=== PATIENT | male | born 1955 | race Caucasian/White ===

== ENCOUNTER → 2017-09-22 | Day surgery (SDC) | payer BC ==
[~2017-09-22] MED LIST: ADVIL PO; BELLADONNA/OPIUM 60 MG SUPP PR ONE; CEFTRIAXONE SOD 1 GM/NS 50 ML 50 ML IV ONE; DEXAMETHASONE SOD PHOS INJ 4 MG/ML VIAL ONE; DOXAZOSIN MESYLA2 MG PO; FENTANYL CITRATE/PF 100MCG/2 ML INJ ONE; FINASTERIDE5 MG PO; GENTAMICIN IV ONE; IOPAMIDOL 610MG/1ML 300 MG/ML VIAL IV ONE; LEVOTHYROXINE50 MCG PO; LIDOCAINE HCL 2% LOCAL INJ 5 ML SDV VIAL INJ ONE; MIDAZOLAM HCL 2 MG/2 ML VIAL ONE; ONDANSETRON HCL INJ 2 MG/ML VIAL ONE; POTASSIUM CITR10 MEQ PO; PROPOFOL IV EMULSION 10 MG/ML 20 ML VIAL ONE; SEVOFLURANE INHAL SOLN 250 ML PEN BTL ONE; [UNRECOGNIZED DRUG - OTHER] IV ONE
--- NOTE | 2017-11-02 01:01 | Operative Report ---
DATE OF PROCEDURE: September 22, 2017 PREOPERATIVE DIAGNOSES: 1. Obstructive benign prostatic hypertrophy, failed medical therapy. 2. History of urolithiasis. POSTOPERATIVE DIAGNOSES: 1. Obstructive benign prostatic hypertrophy, failed medical therapy. 2. History of urolithiasis. OPERATIONS PERFORMED: 1. Cystourethroscopy with bilateral ureteral catheterization and retrograde ureteropyelography (separate procedure performed to evaluate the upper tracts in light of the stone history). 2. Interpretation of retrograde ureteropyelography. 3. Cystourethroscopy with transurethral implantation of 4 UroLift prostatic urethral lift implants (separate procedure performed for the obstructive benign prostatic hypertrophy). ANESTHESIA: General. COMPLICATIONS: None. CLINICAL SUMMARY: Henry Powell is a 62-year-old man with an enlarged prostate approximately 40 g by digital rectal examination. The patient has had a decreased urinary force of stream and incomplete bladder emptying and has a 67 mL prostate obtained by transrectal ultrasonography at time of his previously negative prostate biopsies. The patient has tried Flomax, but he cannot take this Flomax due to the fact that he is an intolerant of the medication. The patient has thoroughly read the literature and researched information on the Internet and has elected to proceed with the UroLift prostatic urethral implant as management of his BPH. His AUA symptom score without medication is greater than 12. He understands the risks of bleeding, infection, injury to adjacent structures, potential need for additional procedures such as a transurethral resection or vaporization of the prostate. He understood all these risks and elected to proceed. OPERATIVE PROCEDURE IN DETAIL: Informed consent was verified. Henry Powell was properly identified, taken to the operating room and placed on the cystoscopy table in supine position. Anesthesia was uneventfully begun. The patient was then carefully and gently repositioned in the dorsal lithotomy position with all pressure points well padded. His genitalia were prepared and draped in usual sterile fashion. A 22.5-Filipino cystoscope sheath with the visual obturator in place was atraumatically inserted in patient's urethra. It was guided down the unremarkable urethra through his normal sphincteric region, through the prostate bed, which was significant for severely obstructing BPH with kissing lateral lobes and no median lobe. We entered the patient's bladder, which revealed trabeculations, but no tumors, no stones, and no diverticula. Normally positioned and configured ureteral orifices were identified. An 8-Filipino catheter was used to cannulate each ureter, and retrograde ureteral pyelograms were performed. Interpretation of retrograde ureteropyelography: Contrast was instilled in retrograde fashion bilaterally. There were no tumors, no stones, and no diverticula. Unobstructed drainage was observed bilaterally fluoroscopically. The cystoscope was removed. Then, the 20-Filipino cystoscope designed for the UroLift implant was atraumatically introduced with the visual obturator. We placed 4 UroLift implants, 1 on either side of the prostate 1/2 cm distal to the bladder neck and 1 on either side of the verumontanum anteriorly. This resulted in a continuous anterior channel and an ideal postoperative UroLift configuration. The was replaced. We carefully re-examined the bladder, we drained it, and then we carefully re-examined the prostate bed as we exited with the cystoscope. A belladonna and opium suppository was placed revealing a 40 g prostate, smooth and non-fluctuant without any nodules, and the patient was uneventfully reversed from anesthesia and taken to the recovery room in stable condition. There were no complications to the procedure. He tolerated the procedure well. Explicit postoperative instructions were given. Will follow the patient up in the office, at which point in time will plan on following him up with study such as uroflowmetry and bladder ultrasonography. Job#: [id number] cc:SUZETTE CHILDERS MD
== END | disposition home or self-care (01) ==
LOC: OR 07:44
PROVIDERS: ATTEND Urology
DX: N40.1 Benign prostatic hyperplasia with lower urinary tract symptoms (principal); N13.8 Other obstructive and reflux uropathy; R39.12 Poor urinary stream; R39.14 Feeling of incomplete bladder emptying; N32.89 Other specified disorders of bladder; R35.1 Nocturia; Z87.442 Personal history of urinary calculi; N50.0 Atrophy of testis; I10 Essential (primary) hypertension; E03.9 Hypothyroidism, unspecified; R00.1 Bradycardia, unspecified; T88.7XXA Unspecified adverse effect of drug or medicament, initial encounter; T44.6X5A Adverse effect of alpha-adrenoreceptor antagonists, initial encounter; Z01.810 Encounter for preprocedural cardiovascular examination
CPT/HCPCS: 52005; C9740; 76001; 93005; J0696; J1100; J1580; J2001; J2250; J2405

== ENCOUNTER → 2018-01-05 | Day surgery (SDC) | payer BC ==
[~2018-01-05] MED LIST changes: -BELLADONNA/OPIUM 60 MG SUPP PR ONE; -CEFTRIAXONE SOD 1 GM/NS 50 ML 50 ML IV ONE; -DEXAMETHASONE SOD PHOS INJ 4 MG/ML VIAL ONE; -GENTAMICIN IV ONE; +HYOSCYAMINE SULFATE 0.5 MG/ML AMP ONE; -IOPAMIDOL 610MG/1ML 300 MG/ML VIAL IV ONE; -ONDANSETRON HCL INJ 2 MG/ML VIAL ONE; -PROPOFOL IV EMULSION 10 MG/ML 20 ML VIAL ONE; +PROPOFOL IV EMULSION 10 MG/ML 50 ML VIAL ONE; -SEVOFLURANE INHAL SOLN 250 ML PEN BTL ONE; +SIMETHICONE 40 MG/0.6 ML BTL ONE; -[UNRECOGNIZED DRUG - OTHER] IV ONE
--- NOTE | 2018-01-05 10:00 | Operative Report ---
DATE OF PROCEDURE: January 05, 2018 REFERRING PHYSICIAN: Dr. Suzette Childers. PROCEDURE PERFORMED: Colonoscopy and polypectomy. INDICATIONS FOR COLONOSCOPY: Colorectal cancer screening. MEDICATION: Patient was done under MAC. Please see anesthesiologist's note. PROCEDURE: With the patient in the left lateral decubitus position, the flexible fiberoptic Olympus colonoscope was inserted into the rectum with ease and advanced all the way to the cecum. The scope was then withdrawn slowly. Mucosa overlying the cecum appeared to be within normal limits. One polyp was snared from the ascending colon. The transverse and descending appeared to be within normal limits. Some diverticular disease was noted in the sigmoid colon. The rectum appeared to be within normal limits. The scope was then retroflexed into the distal rectum, and small internal hemorrhoids were noted, none of which was actively bleeding. The scope was then straightened out, and it was subsequently withdrawn. Patient tolerated the procedure well. IMPRESSION 1. Ascending colon polyp, snared. 2. Diverticulosis. 3. Internal hemorrhoids, none actively bleeding. PLAN: Follow up histology. Initiate high-fiber, low-fat diet. Initiate high-fiber supplement. Patient will need a followup colonoscopy in 3 years. Job#: [id number] cc:SUZETTE CHILDERS MD
== END | disposition home or self-care (01) ==
LOC: ENDO 06:57
PROVIDERS: ATTEND Internal Medicine Gastroenterology
DX: Z12.11 Encounter for screening for malignant neoplasm of colon (principal); D12.0 Benign neoplasm of cecum; D12.2 Benign neoplasm of ascending colon; D12.3 Benign neoplasm of transverse colon; D12.5 Benign neoplasm of sigmoid colon; D12.4 Benign neoplasm of descending colon; K57.30 Diverticulosis of large intestine without perforation or abscess without bleeding; K64.8 Other hemorrhoids; N20.0 Calculus of kidney; F17.210 Nicotine dependence, cigarettes, uncomplicated; Z68.31 Body mass index [BMI] 31.0-31.9, adult; Z80.0 Family history of malignant neoplasm of digestive organs
CPT/HCPCS: 45385; J1980; J2001; J2250

== ENCOUNTER → 2018-09-28 | Outpatient (CLI) | payer BC ==
[~2018-09-28] MED LIST changes: -FENTANYL CITRATE/PF 100MCG/2 ML INJ ONE; -HYOSCYAMINE SULFATE 0.5 MG/ML AMP ONE; -LIDOCAINE HCL 2% LOCAL INJ 5 ML SDV VIAL INJ ONE; -MIDAZOLAM HCL 2 MG/2 ML VIAL ONE; -PROPOFOL IV EMULSION 10 MG/ML 50 ML VIAL ONE; -SIMETHICONE 40 MG/0.6 ML BTL ONE
--- NOTE | 2018-09-28 09:54 | Diagnostic Imaging Report ---
PROCEDURE:X-RAY ABDOMEN - KUB COMPARISON:Retrograde pyelogram 09/22/2017, KUB 04/01/2017. Report from CT abdomen and pelvis without contrast from May 04 INDICATIONS:KIDNEY STONES FINDINGS: There is a cluster of calcifications measuring 1.6 x 1.6 cm in aggregate dimension projecting over the expected region of the left renal pelvis, shown to represent a mesenteric calcification on comparison CT. 6 mm calcification projecting over the upper pole of the left renal shadow is unchanged. Multiple pelvic phleboliths. Probable brachytherapy apparatus within the prostate. Bowel gas pattern is nonobstructive. Regional skeletal structures are intact. CONCLUSION: Unchanged 6 mm left upper pole renal calculus. Dictated by: Ryan Gruber M.D. on 09/28/2018 at 10:03 Electronically approved by: Ryan Gruber M.D. on 09/28/2018 at 10:03
== END ==
LOC: RAD 09:18
PROVIDERS: ATTEND Urology
DX: N20.0 Calculus of kidney (principal)
CPT/HCPCS: 74018

== ENCOUNTER → 2018-12-13 | Outpatient (CLI) | payer BC ==
--- NOTE | 2018-12-13 12:59 | Diagnostic Imaging Report ---
EXAMINATION: MRI of the brain without contrast. HISTORY: Unusual right-sided headaches since last October COMPARISON: None. TECHNIQUE: Sagittal T2; axial DWI, T2, FLAIR, T1-IR, T2 gradient echo; coronal FLAIR. IMAGE QUALITY: Adequate. FINDINGS: Parenchyma: 1. Few scattered and mildly confluent periventricular white matter T2 and FLAIR hyperintense foci, most likely nonspecific chronic microvascular ischemic changes. 2. No mass, hemorrhage, acute or chronic infarcts. Skull: Unremarkable. Vessels: Expected flow voids present in the major arteries and dural sinuses. Extra-axial spaces: No abnormal signal intensity or mass effect. Brain volume: Within normal limits for age. Ventricles: No hydrocephalus or displacement. Foramen magnum: Unremarkable. Sella: Unremarkable. Paranasal / mastoid sinuses: Mild mucosal inflammatory thickening of the bilateral frontal, ethmoidal and maxillary sinuses. IMPRESSION: 1. Mild chronic microvascular ischemic changes, otherwise no intracranial abnormalities. 2. Minimal mucosal inflammatory thickening of the paranasal sinuses. Signed by: Dr. Sydney Kim M.D. on 12/13/2018 12:56 PM
== END ==
LOC: MRI 09:15
PROVIDERS: ATTEND Specialist
DX: R51 Headache (principal)
CPT/HCPCS: 70551

== ENCOUNTER → 2019-02-21 | Outpatient (CLI) | payer BC ==
--- NOTE | 2019-02-21 12:08 | Diagnostic Imaging Report ---
Exam: KUB-2 views Clinical History: History of renal stones. Comparison: None. Findings: Bowel gas partially obscures visualization of the kidneys. There is a 3 mm calcification overlying the left mid kidney. No evidence of calcification overlying the right kidney or expected course of the ureters. Calcified phleboliths are present in the pelvis. Nonobstructive bowel gas pattern. Moderate amount of stool in the colon. Postsurgical changes involving the prostate. On one of the views, there is a sclerotic appearance of the left L1 transverse process. On the additional view, the sclerotic appearance is not present, however the transverse process margin is not well delineated. Impression: Likely 3 mm left mid pole renal stone. On one of the views, there is an indeterminant sclerotic appearance of the left L1 transverse process. On the additional view, the sclerotic appearance is not present, however the transverse process margin is not well delineated. Comparison with prior studies or dedicated lumbar spine radiographs are suggested for further evaluation. Signed by: Dr. Shelby Berg MD on 02/21/2019 12:05 PM
== END ==
LOC: RAD 11:02
PROVIDERS: ATTEND Urology
DX: N20.0 Calculus of kidney (principal)
CPT/HCPCS: 74018

== ENCOUNTER 2019-06-19 12:23 | Inpatient (IN) | payer BC ==
[~2019-06-19] VITALS: Ht 175.3 cm; Wt 90.7 kg
--- OUTSIDE RECORDS SUMMARY | 2019-06-19 12:27 | XMS REPORT ---
Author [facility] Address Unknown Phone Unavailable Care Team Providers Care Community Service Officer Name Role Phone MARGO STEPHENS Unavailable Unavailable SUZETTE CHILDERS Unavailable Unavailable Payers Payer Name Policy Type Policy Number Effective Date Expiration Date Problems This patient has no known problems. Allergies, Adverse Reactions, Alerts Allergy Name Allergy Type Status Severity Reaction(s) Onset Date Inactive Date Treating Clinician Comments No Known Allergies DA Active U 2018-10-28 00:00:00 Sulfa (Sulfonamide Antibiotics) DA Active SV 2018-10-28 00:00:00 Medications This patient has no known medications. Results Test Description Test Time Test Comments Text Results Atomic Results Result Comments [address] (KUB) 2019-02-21 11:57:00 [place] [address] Patient Name: ANDRZEJ JOHNSON MR #: [id number] : 1955 Age/Sex: 63/M Req #: [id number] Adm Physician: Ordered by: MARGO STEPHENS MD Report #: [id number] Location: [facility] Room/Bed: Procedure: [id number] DX/ABDOMEN-1VIEW (KUB) Exam Date: 02/21/19 Exam Time: 1100 REPORT STATUS: Signed Exam: KUB-2 views Clinical History: History of renal stones. Comparison: None. Findings: Bowel gas partially obscures visualization of the kidneys. There is a 3 mm calcification overlying the left mid kidney. No evidence of calcification overlying the right kidney or expected course of the ureters. Calcified phleboliths are present in the pelvis. Nonobstructive bowel gas pattern. Moderate amount of stool in the colon. Postsurgical changes involving the prostate. On one of the views, there is a sclerotic appearance of the left L1 transverse process. On the additional view, the sclerotic appearance is not present, however the transverse process margin is not well delineated. Impression: Likely 3 mm left mid pole renal stone. On one of the views, there is an indeterminant sclerotic appearance of the left L1 transverse process. On the additional view, the sclerotic appearance is not present, however the transverse process margin is not well delineated. Comparison with prior studies or dedicated lumbar spine radiographs are suggested for further evaluation. Signed by: Dr. Sandro Krueger MD on 02/21/2019 12:05 PM Dictated By: SANDRO KRUEGER MD 1205 Transcribed By: SUZAN on 02/21/19 1205 COPY TO: MARGO STEPHENS MD MRI BRAIN WO 2018-12-13 11:49:00 [place] [address] Patient Name: ANDRZEJ JOHNSON MR #: [id number] : 1955 Age/Sex: 63/M Req #: [id number] Adm Physician: Ordered by: SUZETTE CHILDERS MD Report #: [id number] Location: MRI Room/Bed: Procedure: [id number] MRI/MRI BRAIN WO Exam Date: 12/13/18 Exam Time: 1108 REPORT STATUS: Signed EXAMINATION: MRI of the brain without contrast. HISTORY: Unusual right-sided headaches since last October COMPARISON: None. TECHNIQUE: Sagittal T2; axial DWI, T2, FLAIR, T1-IR, T2 gradient echo; coronal FLAIR. IMAGE QUALITY: Adequate. FINDINGS: Parenchyma: 1. Few scattered and mildly confluent periventricular white matter T2 and FLAIR hyperintense foci, most likely nonspecific chronic microvascular ischemic changes. 2. No mass, hemorrhage, acute or chronic infarcts. Skull: Unremarkable. Vessels: Expected flow voids present in the major arteries and dural sinuses. Extra-axial spaces: No abnormal signal intensity or mass effect. Brain volume: Within normal limits for age. Ventricles: No hydrocephalus or displacement. Foramen magnum: Unremarkable. Sella: Unremarkable. Paranasal / mastoid sinuses: Mild mucosal inflammatory thickening of the bilateral frontal, ethmoidal and maxillary sinuses. IMPRESSION: 1. Mild chronic microvascular ischemic changes, otherwise no intracranial abnormalities. 2. Minimal mucosal inflammatory thickening of the paranasal sinuses. Signed by: Dr. Wilmar Kim M.D. on 12/13/2018 12:56 PM Dictated By: WILMAR KIM MD 1256 Transcribed By: SUZAN on 12/13/18 1256 COPY TO: SUZETTE CHILDERS MD [address] ([facility]) 2018-09-28 10:03:00 [place] [address] Patient Name: ANDRZEJ JOHNSON MR #: [id number] : 1955 Age/Sex: 63/M Req #: [id number] Adm Physician: Ordered by: MARGO STEPHENS MD Report #: [id number] Location: [facility] Room/Bed: Procedure: [id number] DX/ABDOMEN-1VIEW (KUB) Exam Date: 09/28/18 Exam Time: 0930 REPORT STATUS: Signed PROCEDURE: X-RAY ABDOMEN - KUB COMPARISON: Retrograde pyelogram 09/22/2017, KUB 04/01/2017. Report from CT abdomen and pelvis without contrast from May 04 INDICATIONS: KIDNEY STONES FINDINGS: There is a cluster of calcifications measuring 1.6 x 1.6 cm in aggregate dimension projecting over the expected region of the left renal pelvis, shown to represent a mesenteric calcification on comparison CT. 6 mm calcification projecting over the upper pole of the left renal shadow is unchanged. Multiple pelvic phleboliths. Probable brachytherapy apparatus within the prostate. Bowel gas pattern is nonobstructive. Regional skeletal structures are intact. CONCLUSION: Unchanged 6 mm left upper pole renal calculus. Dictated by: Geraldo Kaur M.D. on 09/28/2018 at 10:03 Electronically approved by: Geraldo Kaur M.D. on 09/28/2018 at 10:03 Dictated By: GERALDO KAUR MD 1003 Transcribed By: COLLEEN on 09/28/18 1003 COPY TO: MARGO STEPHENS MD
[2019-06-19] MEDS ORDERED: ONDANSETRON HCL INJ 2MG/ML 2ML 2 MG/ML VIAL IV STA (13:07)
[2019-06-19] MEDS ORDERED: SODIUM CHLORIDE 0.9% 1000ML 1,000 ML IV STA (13:07)
[2019-06-19] MEDS ORDERED: MORPHINE SULFATE 2 MG/ML SYR 1ML IV STA (13:07)
[2019-06-19] MEDS ORDERED: KETOROLAC TROMETHAMINE 30 MG/ML VIAL IV STA (13:07)
[2019-06-19 13:35] LABS: BASOPHILS % 0.3 % (0.0-1.0); EOSINOPHILS # (AUTO) 0.1 (0.0-0.4); EOSINOPHILS % 0.4 % (0.0-6.0); HEMATOCRIT 40.4 % (38.2-49.6); HEMOGLOBIN 13.8 g/dL (14.0-18.0); LYMPHOCYTES # (AUTO) 1.9 (1.0-3.2); LYMPHOCYTES % 15.4 % (18.0-39.1); MEAN CORPUSCULAR HEMOGLOBIN 30.1 pg (28-32); MEAN CORPUSCULAR HGB CONC 34.2 g/dL (31-35); MONOCYTES # (AUTO) 1.2 (0.2-0.8); MONOCYTES % 9.9 % (4.4-11.3); NEUTROPHILS # (AUTO) 9.2 (2.1-6.9); NEUTROPHILS % 73.6 % (38.7-80.0); PLATELET COUNT 258 x10e3/uL (140-360); RED BLOOD COUNT 4.59 x10e6/uL (4.3-5.7); RED CELL DISTRIBUTION WIDTH 12.3 % (11.7-14.4)
[2019-06-19 13:48] LABS: INR 0.96; PARTIAL THROMBOPLASTIN TIME 29.3 seconds (23.8-35.5); PROTHROMBIN TIME 13.3 seconds (11.9-14.5)
[2019-06-19 13:59] LABS: ALBUMIN 3.9 g/dL (3.5-5.0); ALBUMIN/GLOBULIN RATIO 1.4 (0.8-2.0); ANION GAP 16.6 mmol/L (8-16); CALCIUM 9.2 mg/dL (8.4-10.2); CREATININE, SERUM 1.43 mg/dL (0.72-1.25); POTASSIUM 3.6 mmol/L (3.5-5.1)
--- NOTE | 2019-06-19 14:06 | NUR ---
PATIENT TO ROOM 9
--- NOTE | 2019-06-19 14:26 | Diagnostic Imaging Report ---
EXAM: CT Abdomen and Pelvis WITHOUT intravenous contrast INDICATION: Left Flank pain COMPARISON: CT abdomen pelvis of 04/17/2016 TECHNIQUE: Abdomen and pelvis were scanned utilizing a multidetector helical scanner from the lung base to the pubic symphysis without administration of IV contrast. Coronal and sagittal reformations were obtained. IV CONTRAST: None ORAL CONTRAST: None COMPLICATIONS: None RADIATION DOSE: Total DLP: 582.2 mGy*cm Dose modulation, iterative reconstruction, and/or weight based adjustment of the mA/kV was utilized to reduce the radiation dose to as low as reasonably achievable. FINDINGS: LOWER THORAX: No focal consolidation. Right middle lobe calcified granuloma. The heart is not enlarged. No pericardial effusion. HEPATOBILIARY: No focal liver lesion. The gallbladder appears unremarkable. SPLEEN: No splenomegaly. PANCREAS: No focal masses or ductal dilatation. ADRENALS: No adrenal nodules. KIDNEYS/URETERS: There is a 5 mm proximal right ureteral calculus resulting in mild right hydroureteronephrosis. Possible additional 6 mm right distal ureteral calculus immediately proximal to the ureterovesical junction. There is increased right perinephric stranding, which can be seen in pyelonephritis. No left hydronephrosis. Nonobstructive 6 mm left upper pole renal calculus. PELVIC ORGANS/BLADDER: Prostatomegaly to 5.2 cm with coarse internal calcifications. The bladder appears unremarkable. PERITONEUM / RETROPERITONEUM: No free air or fluid. LYMPH NODES: 13 mm midabdominal calcified mesenteric lymph node. VESSELS: Unremarkable. GI TRACT: Colonic diverticulosis. No CT evidence of diverticulitis. No bowel obstruction. No abnormal bowel wall thickening. BONES AND SOFT TISSUES: No acute osseous injury. No suspicious lytic or blastic lesions. IMPRESSION: 5 mm proximal right ureteral calculus and likely additional 6 mm right distal ureteral calculus resulting in mild right hydroureteronephrosis. Increased right perinephric stranding can be seen with pyelonephritis. Prostatomegaly with coarse internal calcifications. Signed by: Beatriz Deluna MD on 06/19/2019 2:23 PM
[2019-06-19] MEDS ORDERED: ONDANSETRON HCL INJ 2MG/ML 2ML 2 MG/ML VIAL ONE (15:05)
[2019-06-19] MEDS ORDERED: DEXAMETHASONE SOD PHOS INJ 4 MG/ML VIAL ONE (15:05)
[2019-06-19] MEDS ORDERED: LIDOCAINE HCL 2% LOCAL INJ 5 ML SDV VIAL INJ ONE (15:05)
[2019-06-19] MEDS ORDERED: SEVOFLURANE INHAL SOLN 250 ML PEN BTL ONE (15:05)
[2019-06-19] MEDS ORDERED: PROPOFOL IV EMULSION 10 MG/ML 20 ML VIAL ONE (15:05)
[2019-06-19] MEDS ORDERED: MIDAZOLAM HCL 2 MG/2 ML VIAL ONE (15:12)
[2019-06-19] MEDS: CEFTRIAXONE SOD 1 GM/NS 50 ML 50 ML IV SCH (15:15)
[2019-06-19] MEDS ORDERED: MORPHINE SULFATE 2 MG/ML SYR 1ML IV PRN (15:30)
[2019-06-19] MEDS ORDERED: MORPHINE SULFATE INJ 4 MG/ML INJ 1ML IV PRN (15:30)
[2019-06-19] MEDS ORDERED: ONDANSETRON HCL INJ 2MG/ML 2ML 2 MG/ML VIAL IV PRN (15:30)
--- NOTE | 2019-06-19 16:04 | NUR ---
PATIENT TRANSPORTED TO O.R.
[2019-06-19] MEDS ORDERED: IOPAMIDOL 610MG/1ML 300 MG/ML VIAL IV ONE (16:13)
[2019-06-19] MEDS ORDERED: B&O 60MG R/S 60 MG SUPP PR ONE (16:13)
[2019-06-19] MEDS ORDERED: ACETAMINOPHEN/CODEINE 300MG - 30MG TAB PO PRN (17:15)
[2019-06-19] MEDS ORDERED: B&O 60MG R/S 60 MG SUPP PR PRN (17:15)
--- NOTE | 2019-06-19 19:38 | NUR ---
Received the pt from [facility] to room #110 s/p cystoscopy retrograde and right stent placement done. aaox4.asessment done.no rep.distress.pain voiced 01/22.tele #17 placed noted sb 43.snacks provided.need to strain urine.bed locked and in lowest position.phone and call light within reach.instructed to call for asistance as needed.keep monitor the pt.
[2019-06-19 20:10] VITALS: BP 102/49
[2019-06-19 20:29] VITALS: BP 112/66
[2019-06-19] MEDS: PHENAZOPYRIDINE HCL 100 MG TAB PO SCH (21:04)
[2019-06-19] MEDS: OXYBUTYNIN CHLORIDE 5 MG TAB PO SCH (21:04)
[2019-06-19 23:09] VITALS: BP 112/66
[2019-06-20 00:17] VITALS: BP 84/46
[2019-06-20] MEDS: SODIUM CHLORIDE 0.9% 1000ML 1,000 ML IV SCH ×2 (01:15→01:24)
--- NOTE | 2019-06-20 01:52 | Operative Report ---
DATE OF PROCEDURE: 06/19/2019 SURGEON: Mata Serna MD PREOPERATIVE DIAGNOSES: 1. Right hydronephrosis due to stone. 2. Acute renal failure. POSTOPERATIVE DIAGNOSES: 1. Right hydronephrosis due to stone. 2. Acute renal failure. OPERATION PERFORMED: 1. Cystourethroscopy with bilateral ureteral catheterization and retrograde ureteropyelography (separate procedure performed to evaluate the patient's urinary tract in light of the acute renal failure). 2. Interpretation of retrograde ureteropyelography. 3. Supervision of fluoroscopy, no radiologist present. 4. Cystourethroscopy with insertion of right indwelling ureteral stent (separate procedure performed to relieve the hydronephrosis). ANESTHESIA: General. COMPLICATIONS: None. CLINICAL SUMMARY: Please refer to consultation dictation from the same date. OPERATIVE PROCEDURE IN DETAIL: Informed consent was verified. Henry Powell was properly identified, taken to the operating room, placed on the cystoscopy table in supine position. Anesthesia was uneventfully begun. The patient was then carefully gently repositioned in the dorsal lithotomy position with all pressure points well padded. His genitalia were prepared and draped in the usual sterile fashion. A 22.5-Zambian cystoscope sheath with visual obturator in place was atraumatically inserted into the patient's urethra. It was guided down the unremarkable urethra to the normal sphincteric region into the prostate bed, which was significant for visually obstructing bilobar BPH, most prominent at the apical region. There was a small continuous anterior channel as a result of the UroLift implant. We entered the patient's bladder, panendoscopy revealed grade 2 trabeculations, but no tumors, no stones, no diverticula. Normally positioned configured ureteral orifices were identified. A 5-Zambian open-ended catheter was used to cannulate the left ureter and retrograde ureteropyelograms was performed, it was then inserted into the right ureter and retrograde ureteropyelograms were performed. We then negotiated guidewire into the right renal pelvis. We followed this with the open-ended catheter. A clear hydronephrotic drip was obtained. The wire was replaced with cystoscopic and fluoroscopic guidance. A right-sided indwelling ureteral stent was then placed, it was coiled the patient's renal pelvis as well as the patient's bladder. The retaining suture was cut short. The patient's bladder was drained. The cystoscope was withdrawn. A tobias and opium suppository were placed revealing a 45 g prostate, smooth and non-fluctuant without any nodules. The patient was then uneventfully reversed from anesthesia and taken to recovery room in stable condition. Explicit postop instructions were left on the chart. We will plan on rechecking the patient's laboratory studies tomorrow and probably discharge him tomorrow. Mata MD Kareem [place]/MODL /[id number] cc: Deshaun Alexander MD
--- NOTE | 2019-06-20 02:24 | NUR ---
Patient is sleeping well.strain urine.stable condition.no pain voiced.
--- NOTE | 2019-06-20 02:32 | Consultation ---
DATE OF CONSULTATION: 06/19/2019 Urology Consultation REASON FOR CONSULTATION: Obstructive uropathy. HISTORY OF PRESENT ILLNESS: Henry Powell is a 64-year-old man with history of urolithiasis. He also has a history of BPH and is status post UroLift implantation. The patient had presented with a 3 to 4-day history of severe right-sided flank pain. He had microhematuria as well as gross hematuria in the office. Due to his symptomatology, I referred him immediately to the emergency room, where he was evaluated and found to have obstructive uropathy and subsequently admitted. For past medical history, past surgical history, social history, family history, please refer to my office chart and prior charts here. MEDICATIONS: Please refer to the MAR. ALLERGIES: PLEASE REFER TO THE MAR. REVIEW OF SYSTEMS: Discussed as above in the history of present illness and past medical history, otherwise negative for all systems. PHYSICAL EXAMINATION: GENERAL: Healthy-appearing 64-year-old male, lying in bed, in no apparent distress, but obvious discomfort. ABDOMEN: Soft and nondistended. It is tender in the right flank with right costovertebral angle tenderness. Kidneys not palpable without hepatosplenomegaly. No obvious evidence of hernia. For the remaining physical examination systems, please refer to the ERT sheet and the history and physical by the admitting physician. LABORATORY STUDIES: White blood cell count is 12,450, hemoglobin 13.8, and platelets are normal. The patient's creatinine is elevated at 1.43. PT and PTT are unremarkable. CT scan of the abdomen and pelvis showed a 5 mm proximal right ureteral stone resulting in right hydroureteronephrosis. There is a 6 mm stone, that is calcification near the distal right ureter, which the radiologist thinks may be a stone, but is not, it appears to be a phlebolith to me. There is a 6 mm left upper pole stone as well. ASSESSMENT: 1. Leukocytosis. 2. Anemia. 3. Nausea and vomiting. 4. Malaise. PLAN: I posted the patient emergently for cystoscopy with retrograde pyelograms and insertion of stent in order to relieve his obstructive uropathy. Following this, we will plan to electively manage the patient's stone. Mata MD [place]/MODL /[id number] cc: Deshaun Alexander MD
[2019-06-20] MEDS: CEFTRIAXONE SOD 1 GM/NS 50 ML 50 ML IV SCH (02:58)
[2019-06-20 04:31] VITALS: BP 104/54
[2019-06-20 06:10] LABS: BASOPHILS % 0.2 % (0.0-1.0); EOSINOPHILS % 0.1 % (0.0-6.0); HEMATOCRIT 38.2 % (38.2-49.6); HEMOGLOBIN 12.7 g/dL (14.0-18.0); LYMPHOCYTES # (AUTO) 1.7 (1.0-3.2); LYMPHOCYTES % 20.6 % (18.0-39.1); MEAN CORPUSCULAR HGB CONC 33.2 g/dL (31-35); MEAN CORPUSCULAR VOLUME 90.1 fL (81-99); MONOCYTES # (AUTO) 0.9 (0.2-0.8); MONOCYTES % 10.3 % (4.4-11.3); NEUTROPHILS # (AUTO) 5.6 (2.1-6.9); NEUTROPHILS % 68.4 % (38.7-80.0); PLATELET COUNT 217 x10e3/uL (140-360); RED BLOOD COUNT 4.24 x10e6/uL (4.3-5.7); RED CELL DISTRIBUTION WIDTH 12.5 % (11.7-14.4)
[2019-06-20 06:55] LABS: ALANINE AMINOTRANSFERASE 15 IU/L (0-55); ALBUMIN 3.2 g/dL (3.5-5.0); ALBUMIN/GLOBULIN RATIO 1.3 (0.8-2.0); ALKALINE PHOSPHATASE 67 IU/L (40-150); BLOOD UREA NITROGEN 20 mg/dL (7-26); BUN/CREATININE RATIO 20 (6-25); CALCIUM 8.4 mg/dL (8.4-10.2); CARBON DIOXIDE 23 mmol/L (22-29); CHLORIDE 106 mmol/L (98-107); CREATININE, SERUM 1.01 mg/dL (0.72-1.25); EST GLOMERULAR FILTRATION RATE > 60 ML/MIN (60-); GLUCOSE 108 mg/dL (74-118); SODIUM 138 mmol/L (136-145)
--- NOTE | 2019-06-20 07:07 | NUR ---
Bed side shift report given to the oncoming Rn.stable condition.
--- NOTE | 2019-06-20 07:24 | NUR ---
Rcvd patient in report this am. Patient is asleep in bed at this time. No s/s of distress noted
[2019-06-20 08:07] VITALS: BP 103/59
[2019-06-20] MEDS: PHENAZOPYRIDINE HCL 100 MG TAB PO SCH (08:31)
[2019-06-20] MEDS: OXYBUTYNIN CHLORIDE 5 MG TAB PO SCH (08:31)
[2019-06-20 09:11] VITALS: BP 103/59
--- NOTE | 2019-06-20 09:20 | NUR ---
Patient is AAOx3. Patient lung morrison clear to auscultation. Bowel sounds present x4. No edema noted. Patient ambulates on his own. No c/o pain. Left AC IV in place. IV fluids infusing.
[2019-06-20] MEDS ORDERED: CIPRO500 MG PO (09:28)
[2019-06-20] MEDS ORDERED: ULTRAM 50MG50 MG PO (09:29)
[2019-06-20] MEDS ORDERED: DITROPAN XL5 MG PO (09:29)
[2019-06-20] MEDS ORDERED: TYLENOL WITH C1 EACH PO (09:29)
[2019-06-20] MEDS ORDERED: ONDANSETRON HCL 4 MG ORAL DISINTEGRATING TAB PO PRN (09:45)
--- NOTE | 2019-06-20 09:52 | NUR ---
Patient discharged from facility to home. Patient assisted out via staff. Reviewed all discharge paperwork, follow up appts and RX's given. No s/s of distress noted
--- NOTE | 2019-06-21 07:54 | Discharge Summary ---
PRIMARY CARE PHYSICIAN: Deshaun Alexander MD FINANCIAL COUNSELOR: Mata Serna MD FINAL DIAGNOSES: 1. Multiple ureteral stone on the right, one is 5 mm, the other one is 6 mm. The patient is status post cystourethroscopy with bilateral ureteral catheterization and retrograde ureteropyelography with right indwelling ureteral stent placement. 2. Right renal colic associated with right flank pain, improving. 3. Right hydronephrosis due to stone. 4. Acute renal insufficiency. SUMMARY: The patient is a 64-year-old male, came in with right renal colic. The patient is otherwise stable. He underwent ureteral stent placement. WBC is 8.2 compared to 12.4 on admission. Renal function 1.01 compared to 1.43. The patient is otherwise stable. He is now with a stent. The patient will go home today, follow up with Dr. Mata Serna. Discharged home with Tylenol No. 3, tramadol, and Ditropan. The patient is otherwise stable. Follow up with Dr. Deshaun Alexander for any pain control and follow up with Dr. Mata Serna for stent management. MD SAEED Mckinnon/FRANKYL /[id number]
[2019-07-14] MEDS ORDERED: AZO PO (10:22)
== END 2019-06-20 09:52 | disposition home or self-care (01) | DRG 660 ==
LOC: ER 12:23 → ERHOLD 15:31 → MED/SURG 19:39
PROVIDERS: ADMIT Internal Medicine; ATTEND Internal Medicine
PROC: BT141ZZ Fluoroscopy of Kidneys, Ureters and Bladder using Low Osmolar Contrast (ICD-10-PCS; 2019-06-19)
PROC: 0T768DZ Dilation of Right Ureter with Intraluminal Device, Via Natural or Artificial Opening Endoscopic (ICD-10-PCS; principal; 2019-06-19 15:00)
DX: N13.2 Hydronephrosis with renal and ureteral calculous obstruction (principal); N13.8 Other obstructive and reflux uropathy; N17.9 Acute kidney failure, unspecified; E03.9 Hypothyroidism, unspecified; I10 Essential (primary) hypertension; R31.0 Gross hematuria; R31.29 Other microscopic hematuria; R53.81 Other malaise; R11.2 Nausea with vomiting, unspecified; D64.9 Anemia, unspecified; D72.829 Elevated white blood cell count, unspecified; N40.1 Benign prostatic hyperplasia with lower urinary tract symptoms
CPT/HCPCS: 36415; 74176; 74420; 80053; 83970; 84550; 85025; 85610; 85730; 99284; C1758; C2617; J0696; J1100; J1885; J2001; J2250; J2405; J7030

== ENCOUNTER → 2019-07-14 | Day surgery (SDC) | payer BC ==
[2019-07-12 15:44] LABS: ANION GAP 13.7 mmol/L (8-16); BLOOD UREA NITROGEN 14 mg/dL (7-26); BUN/CREATININE RATIO 16 (6-25); CALCIUM 9.1 mg/dL (8.4-10.2); CARBON DIOXIDE 26 mmol/L (22-29); CHLORIDE 103 mmol/L (98-107); CREATININE, SERUM 0.88 mg/dL (0.72-1.25); EST GLOMERULAR FILTRATION RATE > 60 ML/MIN (60-); GLUCOSE 86 mg/dL (74-118); POTASSIUM 3.7 mmol/L (3.5-5.1); SODIUM 139 mmol/L (136-145)
[~2019-07-14] MED LIST changes: +AZO PO; +B&O 60MG R/S 60 MG SUPP PR ONE; +CEFTRIAXONE SOD 1 GM/NS 50 ML 50 ML IV ONE; +CIPRO500 MG PO; +DEXAMETHASONE SOD PHOS INJ 4 MG/ML VIAL ONE; +DITROPAN XL5 MG PO; +FENTANYL CITRATE/PF 100MCG/2 ML INJ ONE; +IOPAMIDOL 610MG/1ML 300 MG/ML VIAL IV ONE; +LIDOCAINE HCL 2% LOCAL INJ 5 ML SDV VIAL INJ ONE; +MIDAZOLAM HCL 2 MG/2 ML VIAL ONE; +ONDANSETRON HCL INJ 2MG/ML 2ML 2 MG/ML VIAL ONE; +PROPOFOL IV EMULSION 10 MG/ML 20 ML VIAL ONE; +SEVOFLURANE INHAL SOLN 250 ML PEN BTL ONE; +TYLENOL WITH C1 EACH PO; +ULTRAM 50MG50 MG PO
--- NOTE | 2019-07-14 11:14 | Diagnostic Imaging Report ---
Abdomen, 1 view. History: Preop, renal calculus. Comparison: CT abdomen 06/19/2019. Findings: Right internal ureteral stent is present. A 5 mm calcification is seen adjacent to the stent at the level of L3-L4. A 6 mm stone is projected over the upper pole of the left kidney. Multiple calcified phleboliths are present within the pelvis bilaterally. Prostatic seeds are noted. Air is scattered throughout nondilated small and large bowel. There are no masses. The osseous structures are intact. IMPRESSION: Right internal ureteral stent with adjacent proximal right ureteral stone. Signed by: Mark Sheehan on 07/14/2019 11:10 AM
[2019-07-14 13:10] VITALS: BP 123/76
--- NOTE | 2019-08-22 05:00 | Operative Report ---
DATE OF PROCEDURE: 07/14/2019 SURGEON: Mata Serna MD PREOPERATIVE DIAGNOSES: 1. Right ureterolithiasis. 2. Right nephrolithiasis. 3. Foreign body (right indwelling ureteral stent). 4. Left nephrolithiasis. POSTOPERATIVE DIAGNOSES: 1. Right ureterolithiasis. 2. Right nephrolithiasis. 3. Foreign body (right indwelling ureteral stent). 4. Left nephrolithiasis. OPERATION PERFORMED: Note these were all staged procedures as part of multi-staged and multi-step process in managing the patient's urolithiasis. 1. Cystourethroscopy with complicated removal of indwelling ureteral stent (separate procedure performed with separate scope for the diagnosis of stent). 2. Left ureteroscopy (separate procedure performed to evaluate the stone noted on CT on the left hand side). 3. Right semi-rigid ureteroscopy with stone manipulation and extraction of three right ureteral stones (separate procedure performed done with a separate scope). 4. Right flexible ureteropyeloscopy with stone manipulation (separate procedure performed for one small right renal stone). 5. Radiological services for supervision and interpretation of ureteroscopy. 6. Interpretation of retrograde ureteropyelography. 7. Supervision of fluoroscopy, no radiologist present. ANESTHESIA: General. COMPLICATIONS: None. CLINICAL SUMMARY: Henry Powell is a 64-year-old man, who had a previous UroLift implant. He has had a stent in place. He is brought for the above procedure. He is aware of the risks of bleeding, infection, injury to adjacent structures, need for additional procedures and elected to proceed. OPERATIVE PROCEDURE IN DETAIL: Informed consent was verified. Henry Powell was properly identified, taken to the operating room, and placed on the cystoscopy table in the supine position. Anesthesia was uneventfully begun. The patient was then carefully gently repositioned in the dorsal lithotomy position with all pressure points well padded. His genitalia were prepared and draped in the usual sterile fashion. The cystoscope sheath with the visual obturator in place was atraumatically inserted into the patient's urethra, was guided down the unremarkable distal urethra through the normal sphincteric region into the prostate bed, which was significant for having an open anterior channel, however, the remaining of the prostate appeared fairly obstructive from the kissing lateral lobes in the region of the verumontanum to the kissing lateral lobes more proximally. We went to the patient's bladder and drained it. Panendoscopy revealed trabeculations but no tumors, no stones, no suspicious lesions. The stent was noted to be emerging from the right ureter. We cannulated the left collecting system. Flexible ureteroscope was then brought up over the guidewire. Panendoscopy with intrarenal collecting system in conjunction with injection of contrast revealed no suspicious mucosal lesions, no tumors, no stones, no diverticula. Florencio's plaques were noted. However, the left upper pole calcification noted on CT is definitely not present within the collecting system on today's examination. We did not visualize any stones in the kidney nor any tumors, nor any stones, no tumors in the ureter as we exited. A guidewire was then placed into the left ureter and guided to the level of the patient's kidney. A guidewire was then placed into the right ureter and guided to the level of the patient's kidney. The stent was then grasped, completely removed and discarded. Semi-rigid ureteroscopy was then performed, we guided the ureteral scope under direct vision alongside the guidewire into the right ureter. We identified three stones. Three passes were made with the ureteroscope in order to extract these three stones. Flexible ureteroscope was then brought up over the guidewire and guided to the level of the patient's kidney. Panendoscopy revealed Florencio's plaques throughout the right kidney. We identified one small stone. The stone was grasped with Nitinol tipless basket and extracted atraumatically, thus examining the ureter, which exhibited no remaining stones. There were no tumors and there were no strictures and there were no suspicious lesions. Interpretation of retrograde ureteropyelography contrast was instilled in retrograde fashion bilaterally. There were no tumors. There were no significant filling defects. There was no extravasation. Unobstructed drainage was observed bilaterally fluoroscopically, the calcification noted on CT was definitely not within the collecting system. The patient's bladder was drained. Cystoscope was withdrawn. Belladonna and opium suppository was placed revealing 45 g prostate that is smooth, nonfluctuant without any nodules. The patient was then uneventfully reversed from anesthesia and taken to recovery room in stable condition. There were no complications to the procedure. The patient tolerated procedure well. Estimated blood loss was minimal. Explicit postoperative instructions were given. We will plan on returning the patient back to the office. In the future, we will do uroflowmetry and bladder ultrasonography. A transurethral resection of the prostate will be discussed with the patient upon followup. MD ANYI Noble/LUCA /[id number] cc: Deshaun Alexander MD
== END | disposition home or self-care (01) ==
LOC: OR 09:46
PROVIDERS: ATTEND Urology
DX: Z46.6 Encounter for fitting and adjustment of urinary device (principal); N20.0 Calculus of kidney; E03.9 Hypothyroidism, unspecified; N20.2 Calculus of kidney with calculus of ureter; Z87.442 Personal history of urinary calculi
CPT/HCPCS: 36415; 52352; 74018; 74420; 80048; 88300; 93005; J0696; J1100; J2001; J2250; J2405; J2704; J3010; Q9967

== ENCOUNTER → 2019-08-17 | Outpatient (CLI) | payer BC ==
[~2019-08-17] MED LIST changes: -B&O 60MG R/S 60 MG SUPP PR ONE; -CEFTRIAXONE SOD 1 GM/NS 50 ML 50 ML IV ONE; -DEXAMETHASONE SOD PHOS INJ 4 MG/ML VIAL ONE; -FENTANYL CITRATE/PF 100MCG/2 ML INJ ONE; -IOPAMIDOL 610MG/1ML 300 MG/ML VIAL IV ONE; -LIDOCAINE HCL 2% LOCAL INJ 5 ML SDV VIAL INJ ONE; -MIDAZOLAM HCL 2 MG/2 ML VIAL ONE; -ONDANSETRON HCL INJ 2MG/ML 2ML 2 MG/ML VIAL ONE; -PROPOFOL IV EMULSION 10 MG/ML 20 ML VIAL ONE; -SEVOFLURANE INHAL SOLN 250 ML PEN BTL ONE
--- NOTE | 2019-08-17 13:50 | Diagnostic Imaging Report ---
Abdomen, 1 view. History: Renal calculus. Comparison: 07/14/2019. Findings: Air is scattered throughout nondilated small and large bowel. A 6 mm calcification is projected over the left kidney. Calcified phleboliths are present within the pelvis bilaterally. Radiation seeds are noted within the prostate. There are no masses. The osseous structures are intact. IMPRESSION: Non-specific bowel gas pattern. Left renal calculus without change. Signed by: Mark Sheehan on 08/17/2019 1:46 PM
== END ==
LOC: RAD 12:54
PROVIDERS: ATTEND Urology
DX: N20.0 Calculus of kidney (principal)
CPT/HCPCS: 74018

== ENCOUNTER 2019-10-25 06:15 | Inpatient (IN) | payer BC ==
[~2019-10-25] VITALS: Ht 175.3 cm; Wt 94.0 kg
[2019-10-25] MEDS ORDERED: PIPER-TAZ 3.375 GM 50 ML ONE (06:52)
[2019-10-25] MEDS ORDERED: GENTAMICIN 80MG/NS 100 ML 200 ML IV ONE (06:52)
[2019-10-25] MEDS ORDERED: IOPAMIDOL 300MG/ML 50ML INFUS..BTL IV ONE (07:34)
[2019-10-25] MEDS ORDERED: B&O 60MG R/S 60 MG SUPP PR ONE (07:34)
[2019-10-25] MEDS ORDERED: ONDANSETRON HCL INJ 2MG/ML 2ML 2 MG/ML VIAL IV PRN (10:45)
[2019-10-25] MEDS ORDERED: B&O 60MG R/S 60 MG SUPP PR PRN (10:45)
[2019-10-25 11:00] VITALS: BP 146/92
--- NOTE | 2019-10-25 11:00 | NUR ---
Pt received from PACU at this time. Pt is s/p cystoscopy and retrograde with TURP. Pt has three way velazquez size 24FR with continuous bladder irrigation. Pt is aox4 and able to verbalize needs. Breaths are even and unlabored.
[2019-10-25] MEDS: ACETAMINOPHEN/CODEINE 300MG - 30MG TAB PO PRN ×3 (11:38→21:07)
[2019-10-25 11:44] LABS: BASOPHILS % 0.5 % (0.0-1.0); EOSINOPHILS # (AUTO) 0.1 (0.0-0.4); HEMATOCRIT 42.8 % (38.2-49.6); LYMPHOCYTES # (AUTO) 0.9 (1.0-3.2); LYMPHOCYTES % 12.9 % (18.0-39.1); MEAN CORPUSCULAR HEMOGLOBIN 29.9 pg (28-32); MEAN CORPUSCULAR HGB CONC 32.7 g/dL (31-35); MEAN CORPUSCULAR VOLUME 91.3 fL (81-99); MONOCYTES # (AUTO) 0.2 (0.2-0.8); MONOCYTES % 2.4 % (4.4-11.3); NEUTROPHILS # (AUTO) 5.4 (2.1-6.9); NEUTROPHILS % 81.4 % (38.7-80.0); PLATELET COUNT 231 x10e3/uL (140-360); RED BLOOD COUNT 4.69 x10e6/uL (4.3-5.7); RED CELL DISTRIBUTION WIDTH 12.7 % (11.7-14.4)
[2019-10-25 11:47] VITALS: BP 146/92
[2019-10-25 12:02] LABS: ANION GAP 12.6 mmol/L (8-16); BLOOD UREA NITROGEN 15 mg/dL (7-26); BUN/CREATININE RATIO 15 (6-25); CALCIUM 8.5 mg/dL (8.4-10.2); CARBON DIOXIDE 27 mmol/L (22-29); CHLORIDE 104 mmol/L (98-107); CREATININE, SERUM 0.99 mg/dL (0.72-1.25); EST GLOMERULAR FILTRATION RATE > 60 ML/MIN (60-); GLUCOSE 127 mg/dL (74-118); POTASSIUM 3.6 mmol/L (3.5-5.1); SODIUM 140 mmol/L (136-145)
[2019-10-25] MEDS: D5.45%NS/KCL 20MEQ 1,000 ML IV SCH (12:32)
[2019-10-25] MEDS: CEFTRIAXONE SOD 1 GM/NS 50 ML 50 ML IV SCH (12:34)
[2019-10-25] MEDS ORDERED: ACETAMINOPHEN 1000 MG/100 ML IV ONE (12:53)
[2019-10-25] MEDS ORDERED: ONDANSETRON HCL INJ 2MG/ML 2ML 2 MG/ML VIAL ONE (12:53)
[2019-10-25] MEDS ORDERED: DEXAMETHASONE SOD PHOS INJ 4 MG/ML VIAL ONE (12:53)
[2019-10-25] MEDS ORDERED: LIDOCAINE HCL 2% LOCAL INJ 5 ML SDV VIAL INJ ONE (12:53)
[2019-10-25] MEDS ORDERED: FUROSEMIDE INJ 10 MG/ML 4 ML VIAL ONE (12:53)
[2019-10-25] MEDS ORDERED: PROPOFOL IV EMULSION 10 MG/ML 20 ML VIAL ONE (12:53)
[2019-10-25] MEDS ORDERED: SEVOFLURANE INHAL SOLN 250 ML PEN BTL ONE (12:53)
[2019-10-25] MEDS: PHENAZOPYRIDINE HCL 100 MG TAB PO SCH ×2 (15:21→17:35)
[2019-10-25 15:49] VITALS: BP 131/72
[2019-10-25] MEDS: DOCUSATE SODIUM 100 MG CAP PO SCH (17:34)
--- NOTE | 2019-10-25 18:32 | NUR ---
Continuous bladder irrigation in place and patent. Urine is orange and clear. Complains of small discomfort to bladder area but states it is manageable.
--- NOTE | 2019-10-25 18:55 | NUR ---
Received report from previous nurse. Call light within reach. Patient in bed. Continuous bladder irrigate going with orange yellow urine
[2019-10-25] MEDS ORDERED: MIDAZOLAM HCL 2 MG/2 ML VIAL ONE (19:54)
[2019-10-25] MEDS ORDERED: FENTANYL CITRATE/PF 100MCG/2 ML INJ ONE (19:54)
[2019-10-25 20:00] VITALS: BP 110/66
[2019-10-25 20:34] VITALS: BP 110/81
[2019-10-25] MEDS: DIPHENHYDRAMINE HCL 25 MG CAP PO PRN (21:07)
[2019-10-26] VITALS (7 sets, daily range): BP systolic 95–114; BP diastolic 51–76
[2019-10-26] MEDS: D5.45%NS/KCL 20MEQ 1,000 ML IV SCH (06:00)
[2019-10-26 06:01] LABS: BASOPHILS % 0.2 % (0.0-1.0); EOSINOPHILS # (AUTO) 0.1 (0.0-0.4); EOSINOPHILS % 0.4 % (0.0-6.0); HEMOGLOBIN 13.7 g/dL (14.0-18.0); LYMPHOCYTES # (AUTO) 2.4 (1.0-3.2); LYMPHOCYTES % 18.3 % (18.0-39.1); MEAN CORPUSCULAR HEMOGLOBIN 29.8 pg (28-32); MEAN CORPUSCULAR HGB CONC 33.4 g/dL (31-35); MEAN CORPUSCULAR VOLUME 89.3 fL (81-99); MONOCYTES # (AUTO) 1.2 (0.2-0.8); MONOCYTES % 9.1 % (4.4-11.3); NEUTROPHILS # (AUTO) 9.5 (2.1-6.9); NEUTROPHILS % 71.6 % (38.7-80.0); PLATELET COUNT 229 x10e3/uL (140-360); RED BLOOD COUNT 4.59 x10e6/uL (4.3-5.7); RED CELL DISTRIBUTION WIDTH 12.7 % (11.7-14.4)
[2019-10-26 06:24] LABS: BLOOD UREA NITROGEN 13 mg/dL (7-26); BUN/CREATININE RATIO 16 (6-25); CALCIUM 8.4 mg/dL (8.4-10.2); CARBON DIOXIDE 23 mmol/L (22-29); CHLORIDE 104 mmol/L (98-107); CREATININE, SERUM 0.81 mg/dL (0.72-1.25); EST GLOMERULAR FILTRATION RATE > 60 ML/MIN (60-); GLUCOSE 111 mg/dL (74-118); SODIUM 135 mmol/L (136-145)
--- NOTE | 2019-10-26 07:12 | NUR ---
Gave report to oncoming nurse. Call light within reach. patient in bed.
[2019-10-26] MEDS: PHENAZOPYRIDINE HCL 100 MG TAB PO SCH ×3 (08:10→17:27)
[2019-10-26] MEDS: DOCUSATE SODIUM 100 MG CAP PO SCH ×2 (08:10→17:27)
[2019-10-26] MEDS: LEVOTHYROXINE SODIUM 50 MCG TAB PO SCH (09:28)
[2019-10-26] MEDS: FINASTERIDE 5 MG TAB PO SCH (09:41)
[2019-10-26] MEDS: ACETAMINOPHEN/CODEINE 300MG - 30MG TAB PO PRN ×2 (11:15→20:42)
[2019-10-26] MEDS: CEFTRIAXONE SOD 1 GM/NS 50 ML 50 ML IV SCH (13:14)
--- NOTE | 2019-10-26 19:28 | NUR ---
Received change of shift report from AM nurse. Walking rounds completed.
[2019-10-26] MEDS: DIPHENHYDRAMINE HCL 25 MG CAP PO PRN (20:42)
--- NOTE | 2019-10-26 21:04 | NUR ---
Patient c/o of pain =4-5. Pain meds given per MD. Continue monitor. Patient AAOx3. IV intact,patent with no noted redness or swelling noted. Mabry draining orange color due to meds taking. Mabry care done and patient tolerated well.
[2019-10-27 00:12] VITALS: BP 116/63
[2019-10-27] MEDS: ACETAMINOPHEN/CODEINE 300MG - 30MG TAB PO PRN (03:58)
--- NOTE | 2019-10-27 04:12 | NUR ---
Patient requested pain pill. Pain =5. Meds given as ordered by MD. Continue monitor.
[2019-10-27 04:31] VITALS: BP 101/62
[2019-10-27] MEDS: LEVOTHYROXINE SODIUM 50 MCG TAB PO SCH (05:34)
--- NOTE | 2019-10-27 05:52 | NUR ---
Patient resting quitly at this time. Continue monitor.
[2019-10-27 06:21] LABS: BASOPHILS # (AUTO) 0.1 (0.0-0.1); BASOPHILS % 0.5 % (0.0-1.0); EOSINOPHILS # (AUTO) 0.3 (0.0-0.4); EOSINOPHILS % 3.2 % (0.0-6.0); HEMATOCRIT 42.4 % (38.2-49.6); HEMOGLOBIN 13.9 g/dL (14.0-18.0); LYMPHOCYTES # (AUTO) 2.3 (1.0-3.2); LYMPHOCYTES % 23.2 % (18.0-39.1); MEAN CORPUSCULAR HEMOGLOBIN 29.2 pg (28-32); MEAN CORPUSCULAR HGB CONC 32.8 g/dL (31-35); MEAN CORPUSCULAR VOLUME 89.1 fL (81-99); MONOCYTES # (AUTO) 0.9 (0.2-0.8); MONOCYTES % 9.4 % (4.4-11.3); NEUTROPHILS # (AUTO) 6.3 (2.1-6.9); NEUTROPHILS % 63.2 % (38.7-80.0); PLATELET COUNT 207 x10e3/uL (140-360); RED BLOOD COUNT 4.76 x10e6/uL (4.3-5.7); RED CELL DISTRIBUTION WIDTH 12.7 % (11.7-14.4)
[2019-10-27 06:40] LABS: BLOOD UREA NITROGEN 15 mg/dL (7-26); BUN/CREATININE RATIO 18 (6-25); CALCIUM 8.4 mg/dL (8.4-10.2); CARBON DIOXIDE 24 mmol/L (22-29); CHLORIDE 106 mmol/L (98-107); CREATININE, SERUM 0.84 mg/dL (0.72-1.25); EST GLOMERULAR FILTRATION RATE > 60 ML/MIN (60-); GLUCOSE 100 mg/dL (74-118); SODIUM 138 mmol/L (136-145)
--- NOTE | 2019-10-27 06:52 | NUR ---
Received bedside shift report from off going nurse. Patient is resting in bed, no acute distress noted. Denies pain or discomfort at this time. Call light within reach. Bed in the lowest position.
[2019-10-27 08:20] VITALS: BP 118/75
[2019-10-27] MEDS: DOCUSATE SODIUM 100 MG CAP PO SCH (08:53)
[2019-10-27] MEDS: FINASTERIDE 5 MG TAB PO SCH (08:53)
[2019-10-27] MEDS: PHENAZOPYRIDINE HCL 100 MG TAB PO SCH (08:53)
[2019-10-27 09:16] VITALS: BP 118/75
--- NOTE | 2019-10-27 10:00 | NUR ---
DCD velazquez with tip intact as ordered by Dr. Barksdale. Patient DTV at 1800. Per MD patient can be DCD home after voiding.
--- NOTE | 2019-10-27 11:20 | NUR ---
Patient voided 200cc of orange/pink tinged urine at this time.
--- NOTE | 2019-10-27 11:57 | NUR ---
Received DC order from MD. Patient is in stable condition. IV line to right forearm discontinued with tip intact, pressure applied to site, no bleeding noted. Discharge teaching provided to patient and , they both verbalized understanding. Discharge folder with prescription on hand. Personal items on hand. Patient accompanied to private auto by staff.
--- NOTE | 2019-10-28 16:24 | Operative Report ---
DATE OF PROCEDURE: 10/25/2019 SURGEON: Mata Serna MD PREOPERATIVE DIAGNOSES: 1. Obstructive benign prostatic hyperplasia. 2. Hematuria. POSTOPERATIVE DIAGNOSES: 1. Obstructive benign prostatic hyperplasia. 2. Hematuria. OPERATION PERFORMED: 1. Cystourethroscopy with bilateral ureteral catheterization and retrograde ureteropyelography (separate procedure performed for the hematuria). 2. Interpretation of retrograde ureteropyelography. 3. Supervision of fluoroscopy, no radiologist present. 4. Cystourethroscopy with transurethral resection of the prostate utilizing the plasma button electrode. ANESTHESIA: General. COMPLICATIONS: None. CLINICAL SUMMARY: Henry Powell is a 64-year-old man with obstructive BPH. He underwent a UroLift procedure, but had persistent symptomatology. He is brought for the above procedure. He is aware of the risks of bleeding, infection, injury to adjacent structures, need for additional procedures and elected to proceed. OPERATIVE PROCEDURE IN DETAIL: Informed consent was verified. Henry Powell was properly identified, taken to the operating room, placed on the cystoscopy table in supine position. Anesthesia was uneventfully begun. The patient was then carefully gently repositioned in dorsal lithotomy position with all pressure points well padded. His genitalia were prepared and draped in usual sterile fashion. The 2.5-Georgian cystourethroscopy sheath with a visual obturator in place was atraumatically inserted into the patient's urethra. It was guided down the unremarkable distal urethra through the normal sphincteric region and into the prostate bed. Prostate bed was significant for trilobar prostatic hypertrophy with median lobe as well as kissing lateral lobes. There was a small continuous open channel anteriorly from the UroLift procedure, but it seems as if the large prostate and the kissing lateral lobes were overwhelming the prior UroLift procedure. We entered the patient's bladder where panendoscopy revealed trabeculations, but no tumors, no stones, and no diverticula. No suspicious mucosal lesions were identified. An 8-Georgian catheter was used to cannulate each ureter and retrograde ureteral pyelograms were performed. Interpretation of retrograde ureteropyelography contrast was instilled in retrograde fashion bilaterally. There were no tumors, no stones, no diverticula. Unobstructed drainage was observed bilaterally fluoroscopically. There was some tortuosity of the right ureter as it coursed around the iliac vessels. The cystoscope was withdrawn. The resectoscope sheath was atraumatically placed. We then utilized the plasma button electrode to perform transurethral resection of the prostate. First, we limited the median lobe, taking care to avoid injuring the ureteral orifices. We then vaporized the prostate from the bladder neck to maneuver past the verumontanum and down the surgical capsule. There were countless intraprostatic stones that were released. The intraprostatic stones were present throughout the prostate and not just isolated to the apical region. This finding reveals this patient has had a fairly significant history of chronic prostatitis, which would explain why medications as well as the UroLift procedure had less than ideal responses. Pinpoint electrocautery was utilized to achieve hemostasis. Resectoscope was then withdrawn. Continuous irrigation with Mabry catheter was then placed, 40 mL were placed into the 30 mL balloon. Catheter was irrigated to and fro to ensure it worked properly. Clear efflux was obtained in continuous bladder irrigation. Belladonna and opium suppository were placed revealing a large smooth prostate at least 45 g in size. No nodules were identified. The patient was then uneventfully reversed from anesthesia, taken to recovery room in stable condition. No complications to the procedure. He tolerated the procedure well. Estimated blood loss was minimal. Explicit postoperative instructions were given. We will follow the patient up during his hospital course and of course on long-term basis as an outpatient. Mata Serna MD OH/MODL /[id number] cc: Deshaun Alexander MD
== END 2019-10-27 11:57 | disposition home or self-care (01) | DRG 713 ==
LOC: OR 06:15 → PACU V 10:34 → MED/SURG 11:05
PROVIDERS: ADMIT Urology; ATTEND Urology
PROC: 0V508ZZ Destruction of Prostate, Via Natural or Artificial Opening Endoscopic (ICD-10-PCS; principal; 2019-10-25 08:30)
PROC: BT141ZZ Fluoroscopy of Kidneys, Ureters and Bladder using Low Osmolar Contrast (ICD-10-PCS; 2019-10-25 08:30)
DX: N40.1 Benign prostatic hyperplasia with lower urinary tract symptoms (principal); N13.2 Hydronephrosis with renal and ureteral calculous obstruction; R39.14 Feeling of incomplete bladder emptying; R35.1 Nocturia; N50.0 Atrophy of testis; R39.13 Splitting of urinary stream; R97.20 Elevated prostate specific antigen [PSA]; Z87.442 Personal history of urinary calculi; R31.0 Gross hematuria; R31.29 Other microscopic hematuria; E03.9 Hypothyroidism, unspecified; I10 Essential (primary) hypertension; R33.8 Other retention of urine
CPT/HCPCS: 36415; 74420; 80048; 83735; 85025; 93005; C1758; J0696; J1100; J1580; J1940; J2001; J2250; J2405; J2543; J3010

== ENCOUNTER → 2020-08-15 | Outpatient (CLI) | payer MEDICARE, OTHER ==
--- NOTE | 2020-08-15 11:50 | Diagnostic Imaging Report ---
Abdomen-one view INDICATION: ^[id number] ^[id number] ^CALCULUS OF KIDNEY Comparison: 08/17/2019. Discussion: Demonstration of a approximately 5-6 mm calculus projecting over the mid-upper left renal silhouette. Evaluation is limited due to overlying colonic stool. There is also a ill-defined calcification projecting in the left paraspinal soft tissues at the level of the left L2 pedicle measuring up to 1.6 x 1.6 cm. Multiple phleboliths are identified in the pelvis along with radiation seeds. No acute osseous abnormality. IMPRESSION: 1. Nonspecific 1.6 cm ill-defined calcification the left paraspinal soft tissues projecting at the level of the L2 pedicle. Findings may relate to debris within the colon or adjacent bowel loops are soft tissues. Proximal ureteral calculus is a consideration. 2. Stable 5 to 6 mm calculus within the left mid to upper pole. Signed by: Armani Gentile MD on 08/15/2020 11:46 AM
== END ==
LOC: RAD 10:29
PROVIDERS: ATTEND Urology
DX: N20.0 Calculus of kidney (principal)
CPT/HCPCS: 74018

== ENCOUNTER → 2020-10-08 | Outpatient (CLI) | payer MEDICARE, OTHER | LOC: CT 14:32 | PROVIDERS: ATTEND Urology | DX: N20.0 Calculus of kidney (principal) | CPT/HCPCS: 74176 ==

== ENCOUNTER → 2020-11-07 | Day surgery (SDC) | payer MEDICARE ==
[2020-11-04 09:34] LABS: BASOPHILS # (AUTO) 0.1 (0.0-0.1); BASOPHILS % 1.2 % (0.0-1.0); EOSINOPHILS # (AUTO) 0.4 (0.0-0.4); EOSINOPHILS % 7.8 % (0.0-6.0); HEMOGLOBIN 13.7 g/dL (14.0-18.0); LYMPHOCYTES # (AUTO) 1.7 (1.0-3.2); LYMPHOCYTES % 34.1 % (18.0-39.1); MEAN CORPUSCULAR HEMOGLOBIN 29.2 pg (28-32); MEAN CORPUSCULAR HGB CONC 32.6 g/dL (31-35); MEAN CORPUSCULAR VOLUME 89.6 fL (81-99); MONOCYTES # (AUTO) 0.6 (0.2-0.8); MONOCYTES % 11.6 % (4.4-11.3); NEUTROPHILS # (AUTO) 2.3 (2.1-6.9); NEUTROPHILS % 44.9 % (38.7-80.0); PLATELET COUNT 214 x10e3/uL (140-360); RED BLOOD COUNT 4.69 x10e6/uL (4.3-5.7); RED CELL DISTRIBUTION WIDTH 12.8 % (11.7-14.4)
[2020-11-04 09:55] LABS: ANION GAP 10.3 mmol/L (8-16); BLOOD UREA NITROGEN 13 mg/dL (7-26); BUN/CREATININE RATIO 15 (6-25); CALCIUM 8.6 mg/dL (8.4-10.2); CARBON DIOXIDE 27 mmol/L (22-29); CHLORIDE 105 mmol/L (98-107); CREATININE, SERUM 0.85 mg/dL (0.72-1.25); EST GLOMERULAR FILTRATION RATE > 60 ML/MIN (60-); GLUCOSE 99 mg/dL (74-118); POTASSIUM 4.3 mmol/L (3.5-5.1); SODIUM 138 mmol/L (136-145)
[~2020-11-07] MED LIST changes: +B&O 60MG R/S 60 MG SUPP PR ONE; +BUPIVACAINE 0.25% 30ML SDV ONE; +CEFTRIAXONE SOD 1 GM/NS 50 ML 50 ML IV ONE; +DEXAMETHASONE SOD PHOS INJ 4 MG/ML VIAL ONE; +FENTANYL CITRATE/PF 100MCG/2 ML INJ ONE; +FLOMAX0.4 MG PO; +IOPAMIDOL 300MG/ML 50ML INFUS..BTL IV ONE; +LIDOCAINE HCL 2% LOCAL INJ 5 ML SDV VIAL INJ ONE; +MIDAZOLAM HCL 2 MG/2 ML VIAL ONE; +MULTI-VITAMIN1 EACH PO; +ONDANSETRON HCL INJ 2MG/ML 2ML 2 MG/ML VIAL ONE; +PENICILLIN PO; +PROPOFOL IV EMULSION 10 MG/ML 20 ML VIAL ONE; +SEVOFLURANE INHAL SOLN 250 ML PEN BTL ONE; +THERALITH XR T1 EACH PO; +TURMERIC538 MG PO; +VITAMIN B-121000 MCG PO
[2020-11-07 10:50] VITALS: BP 121/71
== END | disposition home or self-care (01) ==
LOC: OR 07:00
PROVIDERS: ATTEND Urology
DX: N20.0 Calculus of kidney (principal); N39.0 Urinary tract infection, site not specified; R97.20 Elevated prostate specific antigen [PSA]; N40.1 Benign prostatic hyperplasia with lower urinary tract symptoms; R39.14 Feeling of incomplete bladder emptying; R35.1 Nocturia; I10 Essential (primary) hypertension; Z84.1 Family history of disorders of kidney and ureter; N50.0 Atrophy of testis; R39.13 Splitting of urinary stream; Z98.890 Other specified postprocedural states; N32.89 Other specified disorders of bladder; E03.9 Hypothyroidism, unspecified; R00.1 Bradycardia, unspecified; Z01.810 Encounter for preprocedural cardiovascular examination; Z01.812 Encounter for preprocedural laboratory examination; Z20.828 Contact with and (suspected) exposure to other viral communicable diseases; Z86.19 Personal history of other infectious and parasitic diseases
CPT/HCPCS: 36415; 50590; 71046; 74018; 80048; 84550; 85025; 93005; C1758; J0696; J1100; J2001; J2250; J2405; J2704; J3010; Q9967; U0002

== ENCOUNTER → 2020-12-19 | Outpatient (CLI) | payer MEDICARE, OTHER ==
[~2020-12-19] MED LIST changes: -B&O 60MG R/S 60 MG SUPP PR ONE; -BUPIVACAINE 0.25% 30ML SDV ONE; -CEFTRIAXONE SOD 1 GM/NS 50 ML 50 ML IV ONE; -DEXAMETHASONE SOD PHOS INJ 4 MG/ML VIAL ONE; -FENTANYL CITRATE/PF 100MCG/2 ML INJ ONE; -IOPAMIDOL 300MG/ML 50ML INFUS..BTL IV ONE; -LIDOCAINE HCL 2% LOCAL INJ 5 ML SDV VIAL INJ ONE; -MIDAZOLAM HCL 2 MG/2 ML VIAL ONE; -ONDANSETRON HCL INJ 2MG/ML 2ML 2 MG/ML VIAL ONE; -PROPOFOL IV EMULSION 10 MG/ML 20 ML VIAL ONE; -SEVOFLURANE INHAL SOLN 250 ML PEN BTL ONE
== END ==
LOC: RAD 11:12
PROVIDERS: ATTEND Urology
DX: N20.0 Calculus of kidney (principal)
CPT/HCPCS: 74018

== ENCOUNTER → 2021-04-22 | Outpatient (CLI) | payer MEDICARE, OTHER | LOC: CT 16:04 | PROVIDERS: ATTEND Urology | DX: N20.0 Calculus of kidney (principal) | CPT/HCPCS: 74176 ==

== ENCOUNTER → 2021-07-18 | Outpatient (CLI) | payer MEDICARE, OTHER ==
[~2021-07-18] MED LIST changes: +IOPAMIDOL 370 MG/ML 200 ML INFUS..BTL INJ ONE; +SODIUM CHLORIDE 0.9% 250ML 250 ML ONE
== END ==
LOC: CT 08:31
PROVIDERS: ATTEND Urology
DX: R31.0 Gross hematuria (principal)
CPT/HCPCS: 74178; J7050; Q9967

== ENCOUNTER → 2021-09-05 | Outpatient (CLI) | payer MEDICARE, OTHER ==
[~2021-09-05] MED LIST changes: +ACETAMINOPHEN-1 EAC4 PO; -IOPAMIDOL 370 MG/ML 200 ML INFUS..BTL INJ ONE; +METRONIDAZOLE500 MG PO; +ONDANSETRON ODT4 MG PO; -SODIUM CHLORIDE 0.9% 250ML 250 ML ONE
== END ==
LOC: DX 09:29
PROVIDERS: ATTEND Surgery
DX: K57.92 Diverticulitis of intestine, part unspecified, without perforation or abscess without bleeding (principal); Z87.442 Personal history of urinary calculi
CPT/HCPCS: 74280

== ENCOUNTER 2021-09-07 18:35 | Emergency (ER) | payer MEDICARE, OTHER ==
[~2021-09-07] VITALS: Ht 175.3 cm; Wt 87.5 kg
[~2021-09-07 18:35] MED LIST changes: -ACETAMINOPHEN-1 EAC4 PO; -METRONIDAZOLE500 MG PO; -ONDANSETRON ODT4 MG PO
[2021-09-07] MEDS ORDERED: SODIUM CHLORIDE 0.9% 1000ML 1,000 ML IV STA (18:48)
[2021-09-07 19:01] LABS: BASOPHILS % 0.2 % (0.0-1.0); EOSINOPHILS % 0.1 % (0.0-6.0); HEMATOCRIT 40.4 % (38.2-49.6); HEMOGLOBIN 13.5 g/dL (14.0-18.0); MEAN CORPUSCULAR HEMOGLOBIN 29.1 pg (28-32); MEAN CORPUSCULAR HGB CONC 33.4 g/dL (31-35); MEAN CORPUSCULAR VOLUME 87.1 fL (81-99); MONOCYTES # (AUTO) 0.9 (0.2-0.8); MONOCYTES % 9.5 % (4.4-11.3); NEUTROPHILS # (AUTO) 7.4 (2.1-6.9); NEUTROPHILS % 78.9 % (38.7-80.0); PLATELET COUNT 249 x10e3/uL (140-360); RED BLOOD COUNT 4.64 x10e6/uL (4.3-5.7); RED CELL DISTRIBUTION WIDTH 12.5 % (11.7-14.4)
[2021-09-07 19:25] LABS: ALBUMIN 3.2 g/dL (3.5-5.0); ALBUMIN/GLOBULIN RATIO 0.8 (0.8-2.0); ANION GAP 14.9 mmol/L (8-16); CALCIUM 8.8 mg/dL (8.4-10.2); CREATININE, SERUM 0.9 mg/dL (0.72-1.25); POTASSIUM 3.9 mmol/L (3.5-5.1)
[2021-09-07 19:31] LABS: CLARITY,URINE HAZY (CLEAR); COLOR,URINE YELLOW (YELLOW); LEUKOCYTE ESTERASE ,URINE NEGATIVE (NEGATIVE); NITRITE,URINE NEGATIVE (NEGATIVE); PROTEIN,URINE DIPSTICK NEGATIVE (NEGATIVE)
[2021-09-07 19:32] LABS: BACTERIA,URINE FEW /HPF; EPITHELIAL CELLS,URINE FEW /LPF; KETONES,URINE NEGATIVE (NEGATIVE); URINE UROBILINOGEN 0.2 mg/dL (0.2 - 1)
[2021-09-07] MEDS ORDERED: ONDANSETRON ODT4 MG PO (22:24)
[2021-09-07] MEDS ORDERED: METRONIDAZOLE500 MG PO (22:24)
[2021-09-07] MEDS ORDERED: ACETAMINOPHEN-1 EAC4 PO (22:24)
[2021-09-07] MEDS ORDERED: CIPRO500 MG PO (22:24)
[2021-09-07] MEDS ORDERED: KETOROLAC TROMETHAMINE 30 MG/ML VIAL IV STA (22:31)
[2021-09-07] MEDS ORDERED: KETOROLAC TROMETHAMINE 30 MG/ML VIAL ONE (22:31)
[2021-09-08] MEDS ORDERED: IOPAMIDOL 370 MG/ML 200 ML INFUS..BTL INJ ONE (05:54)
[2021-09-08] MEDS ORDERED: SODIUM CHLORIDE 0.9% 50ML 50 ML ONE (05:55)
== END 2021-09-07 23:21 | disposition home or self-care (01) ==
LOC: ER 18:52
DX: R10.30 Lower abdominal pain, unspecified (principal); N20.0 Calculus of kidney; K57.32 Diverticulitis of large intestine without perforation or abscess without bleeding; R50.9 Fever, unspecified; K44.9 Diaphragmatic hernia without obstruction or gangrene
CPT/HCPCS: 36415; 74177; 80053; 81001; 83690; 85025; 99284; J1885; J7030; Q9967

== ENCOUNTER → 2022-02-03 | Outpatient (CLI) | payer MEDICARE, OTHER ==
[~2022-02-03] MED LIST changes: +ACETAMINOPHEN-1 EAC4 PO; +METRONIDAZOLE500 MG PO; +ONDANSETRON ODT4 MG PO
== END ==
LOC: RAD 10:19
PROVIDERS: ATTEND Urology
DX: N20.0 Calculus of kidney (principal)
CPT/HCPCS: 74018

== ENCOUNTER → 2022-07-07 | Outpatient (CLI) | payer MEDICARE, OTHER | LOC: RAD 09:46 | PROVIDERS: ATTEND Urology | DX: N20.0 Calculus of kidney (principal) | CPT/HCPCS: 74018 ==

== ENCOUNTER → 2022-11-13 | Day surgery (SDC) | payer MEDICARE, OTHER ==
[~2022-11-13] MED LIST changes: +CEFTRIAXONE 1 GM VIAL ONE; +FENTANYL CITRATE/PF 100MCG/2 ML INJ ONE; +GLYCOPYRROLATE INJ 0.2 MG/ML VIAL ONE; +IOPAMIDOL 300MG/ML 50ML INFUS..BTL IV ONE; +LIDOCAINE HCL 2% LOCAL INJ 5 ML SDV VIAL INJ ONE; +MIDAZOLAM HCL 2 MG/2 ML VIAL ONE; +POVIDONE IODINE 0.05% 0.05 % ML PO ONE; +PROPOFOL IV EMULSION 10 MG/ML 20 ML VIAL ONE; +SEVOFLURANE INHAL SOLN 250 ML PEN BTL ONE
[2022-11-13 14:05] VITALS: BP 120/74
== END | disposition home or self-care (01) ==
LOC: OR 10:07
PROVIDERS: ATTEND Urology
DX: N20.0 Calculus of kidney (principal); N20.1 Calculus of ureter; N13.30 Unspecified hydronephrosis; N39.0 Urinary tract infection, site not specified; N32.89 Other specified disorders of bladder; Z96.0 Presence of urogenital implants; N40.1 Benign prostatic hyperplasia with lower urinary tract symptoms; R39.14 Feeling of incomplete bladder emptying; R35.1 Nocturia; R39.13 Splitting of urinary stream; N50.0 Atrophy of testis; E11.9 Type 2 diabetes mellitus without complications; I10 Essential (primary) hypertension; E03.9 Hypothyroidism, unspecified; F17.290 Nicotine dependence, other tobacco product, uncomplicated; Z01.810 Encounter for preprocedural cardiovascular examination; Z01.818 Encounter for other preprocedural examination; Z79.899 Other long term (current) drug therapy; Z86.16 Personal history of COVID-19; Z84.1 Family history of disorders of kidney and ureter
CPT/HCPCS: 36415; 50590; 74018; 83970; 84550; 93005; C1758; J0696; J2001; J2250; J2704; J3010; Q9967

== ENCOUNTER → 2022-12-10 | Outpatient (CLI) | payer MEDICARE, OTHER ==
[~2022-12-10] MED LIST changes: -CEFTRIAXONE 1 GM VIAL ONE; -FENTANYL CITRATE/PF 100MCG/2 ML INJ ONE; -GLYCOPYRROLATE INJ 0.2 MG/ML VIAL ONE; -IOPAMIDOL 300MG/ML 50ML INFUS..BTL IV ONE; -LIDOCAINE HCL 2% LOCAL INJ 5 ML SDV VIAL INJ ONE; -MIDAZOLAM HCL 2 MG/2 ML VIAL ONE; -POVIDONE IODINE 0.05% 0.05 % ML PO ONE; -PROPOFOL IV EMULSION 10 MG/ML 20 ML VIAL ONE; -SEVOFLURANE INHAL SOLN 250 ML PEN BTL ONE
== END ==
LOC: RAD 10:09
PROVIDERS: ATTEND Urology
DX: N02.0 Recurrent and persistent hematuria with minor glomerular abnormality (principal)
CPT/HCPCS: 74018

== ENCOUNTER → 2022-12-29 | Day surgery (SDC) | payer MEDICARE, OTHER ==
[2022-12-25 14:35] LABS: BASOPHILS # (AUTO) 0.1 (0.0-0.1); BASOPHILS % 0.7 % (0.0-1.0); EOSINOPHILS # (AUTO) 0.3 (0.0-0.4); EOSINOPHILS % 3.5 % (0.0-6.0); HEMATOCRIT 50.5 % (38.2-49.6); HEMOGLOBIN 15.7 g/dL (14.0-18.0); LYMPHOCYTES # (AUTO) 1.6 (1.0-3.2); LYMPHOCYTES % 19.7 % (18.0-39.1); MEAN CORPUSCULAR HGB CONC 31.1 g/dL (31-35); MEAN CORPUSCULAR VOLUME 96.4 fL (81-99); MONOCYTES # (AUTO) 0.6 (0.2-0.8); MONOCYTES % 7.6 % (4.4-11.3); NEUTROPHILS # (AUTO) 5.5 (2.1-6.9); NEUTROPHILS % 68.1 % (38.7-80.0); PLATELET COUNT 284 x10e3/uL (140-360); RED BLOOD COUNT 5.24 x10e6/uL (4.3-5.7); RED CELL DISTRIBUTION WIDTH 12.5 % (11.7-14.4)
[~2022-12-29] MED LIST changes: +CEFTRIAXONE 1 GM VIAL ONE; +DEXAMETHASONE SOD PHOS INJ 4 MG/ML SDV ONE; +FENTANYL CITRATE/PF 100MCG/2 ML INJ ONE; +IOPAMIDOL 370 MG/ML 100 ML INFUS..BTL INJ ONE; +LIDOCAINE HCL 2% LOCAL INJ 5 ML SDV VIAL INJ ONE; +ONDANSETRON HCL INJ 2MG/ML 2ML 2 MG/ML VIAL ONE; +POVIDONE IODINE 0.05% 0.05 % ML PO ONE; +PROPOFOL IV EMULSION 10 MG/ML 20 ML VIAL ONE; +SEVOFLURANE INHAL SOLN 250 ML PEN BTL ONE
[2022-12-29 07:36] LABS: ANION GAP 13.1 mmol/L (8-16); CALCIUM 8.9 mg/dL (8.4-10.2); CREATININE, SERUM 0.91 mg/dL (0.72-1.25); POTASSIUM 4.1 mmol/L (3.5-5.1)
[2022-12-29 10:39] VITALS: BP 118/80
== END | disposition home or self-care (01) ==
LOC: OR 06:13
PROVIDERS: ATTEND Urology
DX: N20.0 Calculus of kidney (principal); N13.30 Unspecified hydronephrosis; N20.1 Calculus of ureter; N40.1 Benign prostatic hyperplasia with lower urinary tract symptoms; R39.14 Feeling of incomplete bladder emptying; R35.1 Nocturia; R39.13 Splitting of urinary stream; N50.0 Atrophy of testis; I10 Essential (primary) hypertension; E07.9 Disorder of thyroid, unspecified; F17.290 Nicotine dependence, other tobacco product, uncomplicated; Z01.812 Encounter for preprocedural laboratory examination; Z79.899 Other long term (current) drug therapy; Z86.16 Personal history of COVID-19; Z84.1 Family history of disorders of kidney and ureter
CPT/HCPCS: 36415 ×2; 50590; 74018; 80048; 85025; J0696; J1100; J2001; J2405; J2704; J3010; Q9967

== ENCOUNTER → 2024-12-21 | Outpatient (REF) | payer MEDICARE, OTHER ==
[~2024-12-21] MED LIST changes: -CEFTRIAXONE 1 GM VIAL ONE; -DEXAMETHASONE SOD PHOS INJ 4 MG/ML SDV ONE; -FENTANYL CITRATE/PF 100MCG/2 ML INJ ONE; -IOPAMIDOL 370 MG/ML 100 ML INFUS..BTL INJ ONE; -LIDOCAINE HCL 2% LOCAL INJ 5 ML SDV VIAL INJ ONE; -ONDANSETRON HCL INJ 2MG/ML 2ML 2 MG/ML VIAL ONE; -POVIDONE IODINE 0.05% 0.05 % ML PO ONE; -PROPOFOL IV EMULSION 10 MG/ML 20 ML VIAL ONE; -SEVOFLURANE INHAL SOLN 250 ML PEN BTL ONE
== END ==
LOC: RAD 11:15
PROVIDERS: ATTEND Specialist
DX: Z01.810 Encounter for preprocedural cardiovascular examination (principal)
CPT/HCPCS: 71046